=== PATIENT | female | born 1960 | race Caucasian/White ===

== ENCOUNTER 2024-07-10 12:36 | Outpatient (AMB) | payer OTHER, SELFPAY ==
[2024-07-10 12:42] VITALS: BP 120/70; PULSE 71; O2SAT 99; BMI 20.8
--- NOTE | 2024-07-10 12:42 | MHC.OFFVIS ---
Vital Signs 07/10/24 12:42 Height 5 ft 5.5 in Weight 127 lb 3.307 oz BMI 20.8 BP 120/70 Pulse 71 Pulse Source Pulse Oximeter Pulse Oximetry (%) 99 Oxygen Delivery Method Room Air Intake Visit Reasons: arthralgia Intake Note: Patient presents for follow up on arthralgia. Allergies acetaminophen [From Percocet] Allergy (Mild, Verified 07/10/24 12:47) room spinning, nausea oxycodone [From Percocet] Allergy (Mild, Verified 07/10/24 12:47) room spinning, nausea aspirin Allergy (Unknown, Verified 07/10/24 12:47) Anaphylaxis ibuprofen [Motrin] Allergy (Unknown, Verified 07/10/24 12:47) Anaphylaxis naproxen Allergy (Unknown, Verified 07/10/24 12:47) Anaphylaxis HPI HPI arthralgia: Details: SInce being on naltraxone for POTs she has had increase multiple joint pain: bilateral hips and lower back. She has difficulty walking due to sharp hip pain for a day requiring crutches onset 1 month prior to starting naltraxone. At night she has burning sensation in back radiating to hip to thighs and knees. It can last 5 minutes or an hour. Unable to put weight on leg when it occurs. Left CMC pain with burning. [facility] Medical History (Updated 07/10/24 @ 13:33 by Ike Griffith MD) Torn Achilles tendon delivery delivered Fatigue Dyspnea Depression Cervical lymphadenopathy Acute anaphylaxis Albuminuria Osteoporosis Asthma Carpal tunnel syndrome on both sides Arthralgia LEVON positive Surgical History (Updated 07/10/24 @ 12:50 by Anabel Sunshine CMA) H/O left knee surgery Family History (Updated 07/10/24 @ 12:53 by Anabel Sunshine CMA) Father Cancer Skin cancer Mother Breast cancer Mouth cancer Hypertension Heart disease Arthritis Psoriasis Social History (Updated 07/10/24 @ 12:54 by Anabel Sunshine CMA) Alcohol intake: current Alcohol intake frequency: holidays/special occasions only Alcohol type: other Comment: mixed drinks Review of Systems Const All systems reviewed & are unremarkable except as noted in HPI and below Physical Exam Vital Signs: Last Vital Signs Pulse 71 07/10/24 12:42 BP 120/70 07/10/24 12:42 Pulse Ox 99 07/10/24 12:42 Oxygen Delivery Method Room Air 01/02/25 12:42 BMI result Body Mass Index 20.8 Const Other: General: Comfortable Skin: No lesions seen MSK: Tender to palpate mid lumbar spinous process. No paraspinal muscle tenderness. Good lumbar flexion. Negative straight leg raising test. No synovitis of lower extremities. Tender to palpate left groin region. Trochanteric bursa tenderness found bilaterally. Squaring of bilateral CMCs. Tender to palpate left CMC. Heberden's node present. Assessment & Plan Assessment & Plan (1) Hip pain: Comment: Bilateral. She is experiencing acute sharp left groin pain worse than right groin pain. Differential diagnosis includes ligament/hip flexor muscle strain, LUZ ELENA, hip pathology. I will obtain x-ray for further evaluation. She has trochanteric bursitis on exam contributing to lateral hip pain. She agreed with conservative management with physical therapy. Code(s): M25.559 - Pain in unspecified hip Category: Medical Plan: PT ordered Avoid oral NSAIDs due to history of anaphylaxis She will use Tylenol as needed for pain Return to clinic in 3 months (2) Lower back pain: Comment: Chronic nocturnal pain in supine position with burning sensation lower back radiation to bilateral thighs is concerning for spinal pathology/nerve impingement. I will obtain x-ray lumbar spine. We discussed conservative management with PT. Code(s): M54.50 - Low back pain, unspecified Category: Medical Qualifiers: Chronicity: chronic Back pain laterality: bilateral Sciatica presence: without sciatica Qualified Code(s): M54.50 - Low back pain, unspecified; G89.29 - Other chronic pain Plan: X-ray lumbar spine ordered PT ordered She will use Tylenol as needed for pain Avoid oral NSAIDs it history of anaphylaxis If symptoms worsen with physical therapy, she will call office. I will then pursue MRI lumbar spine without contrast to evaluate for spinal pathology/nerve impingement contributing to her symptoms. (3) Trochanteric bursitis of both hips: Comment: Chronic. We discussed diagnosis and management Code(s): M70.61 - Trochanteric bursitis, right hip; M70.62 - Trochanteric bursitis, left hip Category: Medical Plan: PT ordered (4) Osteoarthritis of carpometacarpal joint of left thumb: Comment: Discussed diagnosis and management. We discussed considering topical diclofenac gel. I recommend that she contact her milking machine operator at [facility] for in office challenge due to her history of anaphylaxis to oral NSAIDs. If she is unable to take diclofenac, we discussed considering cortisone injection. Code(s): M18.12 - Unilateral primary osteoarthritis of first carpometacarpal joint, left hand Category: Medical Qualifiers: Osteoarthritis type: primary Qualified Code(s): M18.12 - Unilateral primary osteoarthritis of first carpometacarpal joint, left hand Plan: Diclofenac gel prescribed Return to clinic in 3 months (5) Carpal tunnel syndrome: Comment: Pain is relieved with last cortisone injection Code(s): G56.00 - Carpal tunnel syndrome, unspecified upper limb Category: Medical Qualifiers: Laterality: unspecified laterality Qualified Code(s): G56.00 - Carpal tunnel syndrome, unspecified upper limb Plan: Monitor clinic Orders: Orders XR lumbar spine 2-3V Today M54.50 - Low back pain, unspecified XR hip CALEB min 3V w/wo pel Today M25.559 - Pain in unspecified hip Referrals Physical Medicine and Rehabilitation Referral M25.559 - Pain in unspecified hip, M54.50 - Low back pain, unspecified, M70.61 - Trochanteric bursitis, right hip, M70.62 - Trochanteric bursitis, left hip Medications: New diclofenac sodium 1% (Arthritis Pain (diclofenac)) apply to affected area every 4-6 hours as needed 2 grams topical QID 100 grams 0RF Coding Level of Care Code Est Pt Level 4 (41175) Complex EM visit Add On G2211 Diagnoses Hip pain M25.559 Chronic bilateral low back pain without sciatica M54.50; G89.29 Chronicity: chronic Back pain laterality: bilateral Sciatica presence: without sciatica Trochanteric bursitis of both hips M70.61; M70.62 Primary osteoarthritis of first carpometacarpal joint of left hand M18.12 Osteoarthritis type: primary Carpal tunnel syndrome, unspecified laterality G56.00 Laterality: unspecified laterality
== END 2024-07-10 13:32 | disposition home or self-care (01) ==
PROVIDERS: PCP Internal Medicine; Visit Provider Internal Medicine Rheumatology
DX: M25.559 Pain in unspecified hip (principal); M54.50 Low back pain, unspecified; G89.29 Other chronic pain; M70.61 Trochanteric bursitis, right hip; M70.62 Trochanteric bursitis, left hip; M18.12 Unilateral primary osteoarthritis of first carpometacarpal joint, left hand; G56.00 Carpal tunnel syndrome, unspecified upper limb
CPT/HCPCS: 99214; G2211

== ENCOUNTER 2024-07-15 12:33 | Outpatient (REF) | payer OTHER, SELFPAY ==
--- NOTE | ~2024-07-15 | XR_ITS ---
CLINICAL HISTORY: M25.559 - Pain in unspecified hip 4 view bilateral hips Comparison: None Findings: No acute fracture or dislocation No significant arthritic change. The soft tissues are unremarkable. IMPRESSION: No acute findings. This document has been electronically signed by: Carlos Jeffries MD on 07/17/2024 20:45:53
--- NOTE | ~2024-07-15 | XR_ITS ---
CLINICAL HISTORY: M54.50 - Low back pain, unspecified 3 views lumbar spine Comparison: None Findings: Normal alignment. No acute fractures or dislocation. No significant degenerative change. IMPRESSION: No acute findings. This document has been electronically signed by: Carlos Jeffries MD on 07/17/2024 20:56:13
== END 2024-07-15 12:34 | disposition home or self-care (01) ==
LOC: HO.XRAY 12:33
PROVIDERS: PCP Internal Medicine; Visit Provider Internal Medicine Rheumatology
DX: M54.50 Low back pain, unspecified (principal); M25.551 Pain in right hip; M25.552 Pain in left hip
CPT/HCPCS: 72100; 73522

== ENCOUNTER → 2024-07-15 12:41 | Outpatient (BNV) | payer OTHER, SELFPAY | PROVIDERS: PCP Internal Medicine; Visit Provider Specialist | DX: M25.559 Pain in unspecified hip (principal); M54.50 Low back pain, unspecified | CPT/HCPCS: 72100; 73522 ==

== ENCOUNTER 2025-01-15 13:33 | Outpatient (AMB) | payer OTHER, SELFPAY ==
--- NOTE | 2025-01-15 13:37 | MHC.OFFVIS ---
Vital Signs 01/15/25 13:38 Height 5 ft 5.5 in Weight 126 lb 15.78 oz BMI 20.8 BP 110/80 Blood Pressure Location Rt brachial Position Sitting Pulse 82 Pulse Source Pulse Oximeter Pulse Oximetry (%) 99 Oxygen Delivery Method Room Air Intake Visit Reasons: follow up Intake Note: Patient presents for follow up on arthralgia. Allergies acetaminophen (From Percocet) Allergy (Mild, Verified 01/15/25 13:42) room spinning, nausea oxycodone (From Percocet) Allergy (Mild, Verified 01/15/25 13:42) room spinning, nausea aspirin Allergy (Unknown, Verified 01/15/25 13:42) Anaphylaxis ibuprofen (Motrin) Allergy (Unknown, Verified 01/15/25 13:42) Anaphylaxis naproxen Allergy (Unknown, Verified 01/15/25 13:42) Anaphylaxis HPI HPI follow up: Details: She has been going to PT for 3-4 months. Gluten free diet resolved right wrist pain. She continues to have numbness in her hands, which occurred around October. She no longer is experiencing radicular symptoms in her lower extremities. She has intermittent right groin pain. COUNT INCLUDES THE [facility] Medical History (Updated 01/15/25 @ 15:36 by Ike Griffith MD) Anxiety Torn Achilles tendon delivery delivered Fatigue Dyspnea Depression Cervical lymphadenopathy Acute anaphylaxis Albuminuria Osteoporosis Asthma Carpal tunnel syndrome on both sides Arthralgia LEVON positive Surgical History H/O left knee surgery Family History Father Cancer Skin cancer Mother Breast cancer Mouth cancer Hypertension Heart disease Arthritis Psoriasis Social History Alcohol intake: current Alcohol intake frequency: holidays/special occasions only Alcohol type: other Comment: mixed drinks Physical Exam Vital Signs: Last Vital Signs Pulse 82 01/15/25 13:38 BP 110/80 01/15/25 13:38 Pulse Ox 99 01/15/25 13:38 Oxygen Delivery Method Room Air 01/15/25 13:38 BMI result Body Mass Index 20.8 Const Other: General: Comfortable Skin: No lesions seen MSK: Good lumbar flexion. Trochanteric bursa tenderness found bilaterally. Squaring of bilateral CMCs. Heberden's node present. 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 Normal range of motion of upper extremities and lower extremities. Office Procedures AMB Joint Injection/Aspiration Joint Injection/Aspiration Details: Right carpal tunnel Prep: site was prepped using aseptic technique Injected: 20 mg of, Kenalog, with 0.5 mL of and 1% plain lidocaine Procedure: Informed verbal consent was obtained. The patient tolerated the procedure well. Postprocedure protocol was discussed with patient. Coding Additional procedure code (CPT) needed (CPT code 99896 right carpal tunnel injection) Office Meds lidocaine (PF) 10 mg/mL (1 %) injection solution Performing Provider: Ike Griffith MD Performing Location[place] [facility] [place] [facility] Administered by: Ike Griffith MD on 01/15/25 15:30 Dose Route Admin Location Dispensed Lot Number Expiration Date FORMERLY NAMED [facility] Scientific Editor 5 mg Infiltration 2 mL [id number] [employer] Total Dispensed Waste 2 mL 75 % Kenalog 40 mg/mL suspension for injection Performing Provider: Ike Griffith MD Performing Location: [facility] [place] [facility] Administered by: Ike Griffith MD on 01/15/25 15:30 Dose Route Admin Location Dispensed Lot Number Expiration Date FORMERLY NAMED [facility] Scientific Editor 20 mg Tendon Sheath Inj. 1 mL [id number] [employer] Total Dispensed Waste 1 mL 50 % Assessment & Plan Assessment & Plan (1) Carpal tunnel syndrome: Comment: Recurrent symptoms in right hands. Rheumatology history: Symptomatic in bilateral hands right worse than left. Nerve conduction study confirmed right carpal tunnel syndrome. She received cortisone injection to treat right carpal tunnel syndrome April 2023 and October 2023. Code(s): G56.00 - Carpal tunnel syndrome, unspecified upper limb Category: Medical Qualifiers: Laterality: right Qualified Code(s): G56.01 - Carpal tunnel syndrome, right upper limb Plan: Patient received cortisone injection to treat right carpal tunnel syndrome Return to clinic in 1 year or sooner if needed. Patient could be added to my urgent slot if needed (2) Hip pain: Comment: Bilateral. She experience acute sharp left groin pain worse than right groin pain. X-ray of bilateral hips was normal. Likely she had radiating pain from trochanteric bursitis versus ligament/muscular strain. Resolved with PT. Code(s): M25.559 - Pain in unspecified hip Category: Medical Qualifiers: Laterality: bilateral Qualified Code(s): M25.551 - Pain in right hip; M25.552 - Pain in left hip Plan: Continue PT exercises at home. We discussed importance of consistency Return to clinic in 12 months or sooner if needed (3) Trochanteric bursitis of both hips: Comment: Chronic. Pain resolved with PT Code(s): M70.61 - Trochanteric bursitis, right hip; M70.62 - Trochanteric bursitis, left hip Category: Medical Plan: Continue home exercise program with exercises learned from PT Return to clinic in 12 months or sooner if needed (4) Lower back pain: Comment: Chronic nocturnal pain in supine position with burning sensation lower back radiation to bilateral thighs is concerning for spinal pathology/nerve impingement. X-ray L-spine was normal. Symptoms resolved with physical therapy. Code(s): M54.50 - Low back pain, unspecified Category: Medical Qualifiers: Chronicity: chronic Back pain laterality: bilateral Sciatica presence: without sciatica Qualified Code(s): M54.50 - Low back pain, unspecified; G89.29 - Other chronic pain Plan: Continue home exercise program with exercises learned from PT Return to clinic in 12 months or sooner if needed (5) Osteoarthritis of carpometacarpal joint of left thumb: Comment: Clinical diagnosis. Pain resolved. Code(s): M18.12 - Unilateral primary osteoarthritis of first carpometacarpal joint, left hand Category: Medical Qualifiers: Osteoarthritis type: primary Qualified Code(s): M18.12 - Unilateral primary osteoarthritis of first carpometacarpal joint, left hand Plan: Return to clinic in 12 months or sooner if needed Orders: Orders AMB Joint Injection/Aspiration Today G56.00 - Carpal tunnel syndrome, unspecified upper limb Coding Level of Care Code Est Pt Level 4 (59330) Complex EM visit Add On G2211 Diagnoses Carpal tunnel syndrome of right wrist G56.01 Laterality: right Bilateral hip pain M25.551; M25.552 Laterality: bilateral Trochanteric bursitis of both hips M70.61; M70.62 Chronic bilateral low back pain without sciatica M54.50; G89.29 Chronicity: chronic Back pain laterality: bilateral Sciatica presence: without sciatica Primary osteoarthritis of first carpometacarpal joint of left hand M18.12 Osteoarthritis type: primary
[2025-01-15 13:38] VITALS: BP 110/80; PULSE 82; O2SAT 99; BMI 20.8
== END 2025-01-15 14:16 | disposition home or self-care (01) ==
PROVIDERS: PCP Internal Medicine; Visit Provider Internal Medicine Rheumatology
DX: G56.01 Carpal tunnel syndrome, right upper limb (principal); M25.551 Pain in right hip; M25.552 Pain in left hip; M70.61 Trochanteric bursitis, right hip; M70.62 Trochanteric bursitis, left hip; M54.50 Low back pain, unspecified; G89.29 Other chronic pain; M18.12 Unilateral primary osteoarthritis of first carpometacarpal joint, left hand; G56.00 Carpal tunnel syndrome, unspecified upper limb
CPT/HCPCS: 99214; G2211

== ENCOUNTER → 2025-01-15 13:33 | Outpatient (BNVA) | payer OTHER, SELFPAY | PROVIDERS: PCP Internal Medicine; Visit Provider Internal Medicine Rheumatology | DX: G56.01 Carpal tunnel syndrome, right upper limb (principal); M18.12 Unilateral primary osteoarthritis of first carpometacarpal joint, left hand; M25.551 Pain in right hip; M25.552 Pain in left hip; M70.61 Trochanteric bursitis, right hip; M70.62 Trochanteric bursitis, left hip; M54.50 Low back pain, unspecified; G89.29 Other chronic pain | CPT/HCPCS: 20526; J2003; J3300 ==

== ENCOUNTER 2025-05-26 08:03 | Outpatient (AMB) | payer OTHER, SELFPAY ==
[2025-05-26 08:05] VITALS: BP 122/74; PULSE 83; O2SAT 98; BMI 20.7
--- NOTE | 2025-05-26 08:05 | A.OFFVIS_ITS ---
Vital Signs 05/26/25 08:05 Height 5 ft 5.5 in Weight 126 lb 4 oz BMI 20.7 BP 122/74 Blood Pressure Location Lt brachial Position Sitting Pulse 83 Pulse Source Pulse Oximeter Pulse Oximetry (%) 98 Oxygen Delivery Method Room Air Intake Visit Reasons: RT Wrist pain/cortisone inj Intake Note: Patient is here for right wrist cortisone injection. Energy Efficiency Engineer Required: No Accompanied by: Self / Same As Patient Allergies acetaminophen (From Percocet) Allergy (Mild, Verified 05/26/25 08:08) room spinning, nausea oxycodone (From Percocet) Allergy (Mild, Verified 05/26/25 08:08) room spinning, nausea aspirin Allergy (Unknown, Verified 05/26/25 08:08) Anaphylaxis ibuprofen (Motrin) Allergy (Unknown, Verified 05/26/25 08:08) Anaphylaxis naproxen Allergy (Unknown, Verified 05/26/25 08:08) Anaphylaxis HPI HPI RT Wrist pain/cortisone inj: Details: Right hand numbness started 2 weeks ago. No triggering events. [facility] Medical History (Updated 05/26/25 @ 09:53 by Ike Griffith MD) Anxiety Torn Achilles tendon delivery delivered Fatigue Dyspnea Depression Cervical lymphadenopathy Acute anaphylaxis Albuminuria Osteoporosis Asthma Carpal tunnel syndrome on both sides Arthralgia LEVON positive Surgical History H/O left knee surgery Family History Father Cancer Skin cancer Mother Breast cancer Mouth cancer Hypertension Heart disease Arthritis Psoriasis Social History Alcohol intake: current Alcohol intake frequency: holidays/special occasions only Alcohol type: other Comment: mixed drinks Physical Exam Vital Signs: Last Vital Signs Pulse 83 05/26/25 08:05 BP 122/74 05/26/25 08:05 Pulse Ox 98 05/26/25 08:05 Oxygen Delivery Method Room Air 05/26/25 08:05 BMI result Body Mass Index 20.7 Const Other: General: Comfortable Skin: No lesions seen MSK: No tenderness of any joints. Squaring of bilateral CMCs. Heberden nodes present. Office Procedures AMB Joint Injection/Aspiration Joint Injection/Aspiration Details: Right carpal tunnel Prep: site was prepped using aseptic technique Injected: 20 mg of, Kenalog, with 0.5 mL of and 1% plain lidocaine Procedure: Informed verbal consent was obtained. The patient tolerated the procedure well. Postprocedure protocol was discussed with patient. Coding 80947 - Medium joint Additional procedure code (CPT) needed (CPT code 22809) Office Meds lidocaine (PF) 10 mg/mL (1 %) injection solution Performing Provider: Ike Griffith MD Performing Location: [facility] [place] [facility] Administered by: Ike Griffith MD on 05/26/25 08:33 Dose Route Admin Location Dispensed Lot Number Expiration Date [facility] Transport Conductor 0.5 mL Infiltration 2 mL [id number] 03/08/28 41855-436-74 [facility] Total Dispensed Waste 2 mL 75 % Kenalog 40 mg/mL suspension for injection Performing Provider: Ike Griffith MD Performing Location: [facility] [place] [facility] Administered by: Ike Griffith MD on 05/26/25 08:33 Dose Route Admin Location Dispensed Lot Number Expiration Date [facility] Transport Conductor 20 mg Tendon Sheath Inj. 1 mL [id number] 01/05/27 [address]- 1 [employer] Total Dispensed Waste 1 mL 50 % Assessment & Plan Assessment & Plan (1) Carpal tunnel syndrome: Comment: Recurrent symptoms in right hands. Rheumatology history: Symptomatic in bilateral hands right worse than left. Nerve conduction study confirmed right carpal tunnel syndrome. She received cortisone injection to treat right carpal tunnel syndrome April 2023, October 2023 and January 2025. Code(s): G56.00 - Carpal tunnel syndrome, unspecified upper limb Category: Medical Qualifiers: Laterality: right Qualified Code(s): G56.01 - Carpal tunnel syndrome, right upper limb Plan: Patient received cortisone injection to treat right carpal tunnel syndrome Return to clinic in 1 year or sooner if needed. Patient could be added to my urgent slot if needed (2) Hip pain: Comment: Bilateral. She experienced acute sharp left groin pain worse than right groin pain. X-ray of bilateral hips was normal. Likely she had radiating pain from trochanteric bursitis versus ligament/muscular strain. Improved with PT. She continues to go to PT Code(s): M25.559 - Pain in unspecified hip Category: Medical Qualifiers: Laterality: bilateral Qualified Code(s): M25.551 - Pain in right hip; M25.552 - Pain in left hip Plan: Continue PT and home exercise program. We discussed importance of consistency Return to clinic 01/2026 or sooner if needed (3) Trochanteric bursitis of both hips: Comment: Chronic. Pain resolved with PT Code(s): M70.61 - Trochanteric bursitis, right hip; M70.62 - Trochanteric bursitis, left hip Category: Medical Plan: Continue home exercise program with exercises learned from PT Return to clinic 01/2026 or sooner if needed (4) Lower back pain: Comment: Chronic nocturnal pain in supine position with burning sensation lower back radiation to bilateral thighs is concerning for spinal pathology/nerve impingement. X-ray L-spine was normal. Symptoms resolved with physical therapy. Code(s): M54.50 - Low back pain, unspecified Category: Medical Qualifiers: Back pain laterality: bilateral Chronicity: chronic Sciatica presence: without sciatica Qualified Code(s): M54.50 - Low back pain, unspecified; G89.29 - Other chronic pain Plan: Continue home exercise program with exercises learned from PT Return to clinic 01/2026 months or sooner if needed Orders: Orders AMB Joint Injection/Aspiration Today G56.01 - Carpal tunnel syndrome, right upper limb Coding Level of Care Code Est Pt Level 3 (32231) Complex EM visit Add On G2211 Diagnoses Carpal tunnel syndrome of right wrist G56.01 Laterality: right Bilateral hip pain M25.551; M25.552 Laterality: bilateral Trochanteric bursitis of both hips M70.61; M70.62 Chronic bilateral low back pain without sciatica M54.50; G89.29 Back pain laterality: bilateral Chronicity: chronic Sciatica presence: without sciatica CPT Codes Coding - 22628 Medium joint: 67201 - Medium joint ([id number])
== END 2025-05-26 08:31 | disposition home or self-care (01) ==
PROVIDERS: PCP Internal Medicine; Visit Provider Internal Medicine Rheumatology
DX: G56.01 Carpal tunnel syndrome, right upper limb (principal); M25.551 Pain in right hip; M25.552 Pain in left hip; M70.61 Trochanteric bursitis, right hip; M70.62 Trochanteric bursitis, left hip; M54.50 Low back pain, unspecified; G89.29 Other chronic pain
CPT/HCPCS: 20526; 99213

== ENCOUNTER → 2025-05-26 08:03 | Outpatient (BNVA) | payer OTHER, SELFPAY | PROVIDERS: PCP Internal Medicine; Visit Provider Internal Medicine Rheumatology | DX: G56.01 Carpal tunnel syndrome, right upper limb (principal) | CPT/HCPCS: 20526; J2003; J3301 ==